=== PATIENT | male | born 1950 | race Caucasian/White ===

== ENCOUNTER 2017-01-18 07:43 | Inpatient (IN) | payer OTHER, BC ==
[2017-01-11 10:51] VITALS: BMI 36.6
--- NOTE | 2017-01-17 08:40 | HP ---
Satellite [facility] - Chief Complaint Chief Complaint: left knee pain - Past Medical History Allergies/Adverse Reactions: Allergies Allergy/AdvReac Type Severity Reaction Status Date / Time Penicillins Allergy Severe HIVES,TROUBLE Verified 01/11/17 10:13 BREATHING - Current Medications Current Medications: Home Medications Medication Instructions Recorded Aspirin [Ecotrin] 81 mg PO DAILY 01/11/17 Esomeprazole Magnesium 40 mg PO DAILY PRN 01/11/17 Inulin [Fiber Gummies] 2 gm PO DAILY 01/11/17 Oxycodone HCl/Acetaminophen 1 - 2 tab PO Q4H PRN 01/11/17 [Percocet 5-325 mg Tablet] Ramipril [Altace] 5 mg PO DAILY 01/11/17 Satellite Physical Exam - Physical Examination General Appearance: Well Nourished, Well Developed, Alert & Oriented x3 ENT: Clear Lung: Normal air movement Heart: Regular rate & rhythm Extremities: Other (left knee- + swelling, + ttp, decr rom, nvi xrays show severe tricompartmental djd) Neurological: Intact, Alert, Oriented Satellite Impression/Plan - Impression/Plan Impression: left knee djd Operative Procedure: left lisa tkr Date to be Performed: 01/18/17
[2017-01-18] MEDS ORDERED: CEFAZOLIN 2 GM in DEXTROSE 5%-WATER - 50 ML IVPB ONE (08:00)
[2017-01-18] MEDS ORDERED: TRANEXAMIC ACID 1000 MG/10 ML VIAL IVPUSH ONE (08:00)
[2017-01-18] MEDS: GABAPENTIN 300 MG CAPSULE (FP) PO ONE (08:10)
[2017-01-18] MEDS: CELECOXIB 200 MG CAPSULE PO ONE (08:10)
[2017-01-18] MEDS: oxyCODONE HCL 10 MG SUSTAINED ACTING TABLET PO ONE (08:10)
[2017-01-18] MEDS ORDERED: VANCOMYCIN 1,000 MG VIAL (RESTRICTED TO ID ONLY) ONE (08:56)
[2017-01-18] MEDS ORDERED: ceFAZolin SODIUM 1 GM VIAL ONE ×2 (09:13→10:10)
[2017-01-18] MEDS ORDERED: MIDAZOLAM HCL 2 MG/2 ML SINGLE DOSE VIAL ONE (09:19)
[2017-01-18] MEDS ORDERED: ROPIVACAINE HCL 0.5% 30ML VIAL ONE (09:19)
[2017-01-18] MEDS ORDERED: DEXAMETHASONE SOD PHOSPHATE/PF 10 MG/ML SDV ONE (09:19)
[2017-01-18] MEDS ORDERED: DEXAMETHASONE SOD PHOSPHATE 4 MG/1 ML VIAL ONE (10:10)
[2017-01-18] MEDS ORDERED: ONDANSETRON 4 MG/2 ML VIAL ONE ×2 (10:10→13:13)
[2017-01-18] MEDS ORDERED: PROPOFOL 20 ML ONE (10:20)
[2017-01-18] MEDS ORDERED: SUCCINYLCHOLINE CHLORIDE 200 MG/10 ML VIAL ONE (10:20)
[2017-01-18] MEDS ORDERED: ePHEDrine SULFATE 50 MG/1 ML AMPULE ONE (10:38)
[2017-01-18] MEDS ORDERED: PHENYLEPHRINE HCL 10 MG/1 ML SINGLE DOSE VIAL ONE (10:39)
[2017-01-18] MEDS ORDERED: TRANEXAMIC ACID 1000 MG/10 ML VIAL ONE (11:59)
[2017-01-18] MEDS ORDERED: MAG HYDROX/AL HYDROX/SIMETH 30 ML UNIT-DOSE CUP PO PRN (12:16)
[2017-01-18] MEDS ORDERED: ONDANSETRON 4 MG/2 ML VIAL IVPB PRN (12:16)
[2017-01-18] MEDS ORDERED: MAGNESIUM HYDROX 2400MG/30ML ORAL SUSPENSION 30 ML CUP PO PRN (12:16)
--- NOTE | 2017-01-18 12:18 | OP ---
Operative Note - Note: Operative Date: 01/18/17 (brian) Pre-Operative Diagnosis: left knee djd Operation: left lisa tkr Post-Operative Diagnosis: Same as Pre-op Surgeon: Pratik Lester Radio Tower Technician: Moisse Orta Anesthesiologist/ENERGY ATTORNEY: Danette Terry Anesthesia: Spinal, Local Specimens Removed: bone fragments Estimated Blood Loss (mls): 200 (tourniquet) Operative Report Dictated: Yes
[2017-01-18] MEDS ORDERED: LACTATED RINGERS SOLUTION 1,000 ML IV SCH (12:30)
[2017-01-18] MEDS ORDERED: PANTOPRAZOLE 40 MG TABLET (FP) PO PRN (12:49)
[2017-01-18] MEDS: ACETAMINOPHEN 325 MG TABLET (FP) PO SCH ×2 (13:07→18:08)
[2017-01-18] MEDS ORDERED: FAMOTIDINE 20 MG PREMIXED IVPB IVPB ONE (13:15)
[2017-01-18] MEDS ORDERED: FAMOTIDINE 20 MG/50 ML IVPB 50 ML IVPB ONE (14:00)
[2017-01-18] MEDS: CEFAZOLIN 2 GM/D5W 50 ML IVPB SCH (18:06)
[2017-01-18] MEDS: oxyCODONE HCL 5 MG TABLET PO PRN ×2 (18:06→22:26)
[2017-01-18] MEDS: SENNOSIDES/DOCUSATE COMBO (SENNA PLUS) TABLET (UD) PO SCH (21:12)
[2017-01-19] MEDS: ACETAMINOPHEN 325 MG TABLET (FP) PO SCH ×5 (00:09→23:36)
[2017-01-19] MEDS: CEFAZOLIN 2 GM/D5W 50 ML IVPB SCH (01:50)
[2017-01-19] MEDS: oxyCODONE HCL 5 MG TABLET PO PRN ×4 (05:43→20:21)
--- NOTE | 2017-01-19 08:42 | OP ---
DATE OF OPERATION: 01/18/2017 PREOPERATIVE DIAGNOSIS: Degenerative joint disease, left knee. POSTOPERATIVE DIAGNOSIS: Degenerative joint disease, left knee. PROCEDURE: Left total knee replacement with robotic assisted navigation (MAKOplasty). SURGICAL ATTENDING: Pratik Lester MD YEAST PUSHER: SANTOS Ribeiro ANESTHESIA: Spinal and regional. CLOSURE: A Triathlon Press-Fit knee system with a 7 femur, 8 tibia, 9 polyethylene, 38 patella. No. 1 Vicryl fascia, 0 and 2-0 subcutaneous, 3-0 Monocryl subcuticular with skin glue for skin, 4-0 undyed Vicryl for pin sites. ESTIMATED BLOOD LOSS: Approximately 100 mL. COMPLICATIONS: None. CONDITION: Recovery room in stable condition. DESCRIPTION OF OPERATIVE PROCEDURE: Patient was taken to the operating room on January 18, 2017. Spinal and regional anesthesia was administered by the anesthesiologist. IV Kefzol and TXA were administered prophylactically prior to the case. A well-padded pneumatic tourniquet was placed on the left proximal thigh. The left lower extremity was prepped and draped in the usual sterile fashion. The leg was exsanguinated with an Esmarch bandage and inflated to 275 mmHg (mcc through the procedure, the tourniquet for some reason lost some pressure; the leg needed to be re-exsanguinated and then re-inflated this time to 300 mmHg; half the case at 275 and half the case at 300). A 12-to-15-cm longitudinal midline incision was incised. Sharp dissection was carried down to the level of the extensor mechanism which should be sufficient mediolaterally to perform the procedure. A medial parapatellar arthrotomy was then performed with a 10 blade, leaving a cuff of tissue on the patella for later closure. Patient was inverted. The knee was flexed up. Subperiosteal dissection was done in the anterior medial proximal tibia until the knee was able to be brought forward. This was very difficult as the patient had marked osteophytes throughout and very, very stiff throughout. Fat pad was excised as were the meniscal remnants, ACL and PCL. Checkpoints were placed on both the femur and the tibia. Two threaded pins were drilled anterior-posterior through the distal femur, through the incision that was already made, and 2 threaded pins were drilled a handbreadth below the tibial tubercle after first making a stab incision and then drilling them in bicortically. Two of these pins were attached to the navigation arrays. The knee was then registered with the navigation device with center of rotation of the hip, both medial and lateral malleoli, and multiple points on both the femur and the tibia. Excellent registration was confirmed by "popping the bubbles." At this time, all osteophytes were removed. The knee was then tensioned in extension and flexion. The virtual position of the components was fine tuned to give equal tension in both flexion and extension and with varus and valgus stress. The robot was brought in the field and was registered. The robot was then used to make the appropriate cuts on both the tibia and the femur. The gaps were then confirmed to be equal with an 18-mm insert in both 90 degrees of flexion and extension. The number 7 femoral box, reusable jig was used to make the box cut. A number 7 femur achieved excellent [id number] fit. A number 8 tibial baseplate with a 9-mm insert was allowed to "find itself," was then clipped into place. It was ensured to be in the appropriate position by use of the navigation device as well. The knee went from full extension to full flexion with excellent balancing in flexion and extension. The patella was calipered for thickness and then osteotomized at the appropriate level. A 38 lollipop was used to drill the lug holes in the patella. A trial 38 component was then applied, and there was excellent tracking throughout the range of motion with no thumbs. The keel was punched. The keel of the lug holes and the lug holes in the femur were drilled. The knee was post-antibiotic irrigated copiously. The real components were then malleted into place, achieving excellent [id number] fit on both the femur and the tibia. The 9-mm insert was clipped into place. Again, good stability was throughout range of motion to varus and valgus stress. The patella component was crimped into place, had excellent tracking throughout the range of motion, and it was post-antibiotic irrigated again. Vancomycin powder was placed in the incision. The medial parapatellar arthrotomy was then closed using No. 1 Vicryl. After closure, the knee was taken through a range of motion to ensure no undue tension on the repair. The subcutaneous was post-antibiotic irrigated again, closed with 0 and 2-0 and 3-0 Monocryl subcuticular, skin with skin glue. The pins were removed distally and closed with 4-0 undyed Vicryl. Sterile pressure dressing was applied. Patient awakened from anesthesia and transferred to recovery room in stable condition. X-rays showed good position of the components. No complications. Tourniquet was deflated at the end of the case. Total tourniquet time was approximately 90 minutes. Rosa Isela [id number]
[2017-01-19] MEDS: ASPIRIN 325 MG TABLET PO SCH (08:45)
[2017-01-19 08:56] LABS: MCHC 32.8 g/dl (32.0-35.9); PLATELET COUNT 260 K/MM3 (134-434); RDW 14.1 % (11.9-15.9)
[2017-01-19 08:59] LABS: MCH 29.2 pg (25.7-33.7); MEAN CELL VOLUME 88.9 fl (80-96); MEAN PLT VOLUME 8.3 fl (7.5-11.1); WHITE BLOOD COUNT 13.9 K/mm3 (4.0-10.0)
--- NOTE | 2017-01-19 09:03 | PN ---
Progress Note (short form) - Note Progress Note: Ortho Pt seen and examined s/p left lisa tkr pod #1 Selected Entries 01/19/17 04:00 Temperature 97.8 F Pulse Rate 63 Respiratory 19 Rate Blood Pressure 130/67 Laboratory Tests 01/19/17 07:00 WBC Pending Hgb Pending Hct Pending Plt Count Pending dressing c/d/i, calf soft, nt rom 0-60, nvi a/p PT dvt ppx pain control d/c home today/tomorrow
[2017-01-19] MEDS: SENNOSIDES/DOCUSATE COMBO (SENNA PLUS) TABLET (UD) PO SCH ×2 (10:13→21:42)
[2017-01-19] MEDS: MULTIVITAMINS (DAILY MVI) TABLET (FP) PO SCH (10:13)
[2017-01-19] MEDS: RAMIPRIL 5 MG CAPSULE (FP) PO SCH (10:13)
--- NOTE | 2017-01-19 10:44 | PN ---
Progress Note, Physician Chief Complaint: s/p left TKA HALI post op day one. under spinal and peripheral nerve block History of Present Illness: post op day one - Current Medication List Current Medications: Active Medications Acetaminophen (Tylenol -) 650 mg PO Q6H [facility] Stop: 01/21/17 12:29 Last Admin: 01/19/17 05:43 Dose: 650 mg Al Hydroxide/Mg Hydroxide (Mylanta Oral Suspension -) 30 ml PO Q4H PRN PRN Reason: DYSPEPSIA Aspirin (Asa -) 325 mg PO DAILY@0800 [facility] Last Admin: 01/19/17 08:45 Dose: 325 mg Magnesium Hydroxide (Milk Of Magnesia -) 30 ml PO PRN PRN PRN Reason: CONSTIPATION Multivitamins/Minerals/Vitamin C (Tab-A-Vit -) 1 tab PO DAILY [facility] Last Admin: 01/19/17 10:13 Dose: 1 tab Ondansetron HCl (Zofran Injection) 4 mg IVPB Q6H PRN PRN Reason: NAUSEA Oxycodone HCl (Roxicodone -) 5 mg PO Q3H PRN PRN Reason: PAIN LEVEL 1-5 Last Admin: 01/19/17 05:43 Dose: 5 mg Oxycodone HCl (Roxicodone -) 10 mg PO Q3H PRN PRN Reason: PAIN LEVEL 6-10 Last Admin: 01/19/17 08:45 Dose: 10 mg Pantoprazole Sodium (Protonix -) 40 mg PO DAILY PRN PRN Reason: DYSPEPSIA Last Admin: 01/19/17 10:13 Dose: 40 mg Ramipril (Altace -) 5 mg PO DAILY [facility] Last Admin: 01/19/17 10:13 Dose: 5 mg Senna/Docusate Sodium (Pericolace -) 2 tablet PO BID [facility] Last Admin: 01/19/17 10:13 Dose: 2 tablet - Objective Vital Signs: Vital Signs Temperature 97.8 F 01/19/17 04:00 Pulse Rate 63 01/19/17 04:00 Respiratory Rate 19 01/19/17 08:20 Blood Pressure 130/67 01/19/17 04:00 O2 Sat by Pulse Oximetry (%) 96 01/19/17 08:20 Constitutional: Yes: Well Nourished Cardiovascular: Yes: WNL Respiratory: Yes: WNL Gastrointestinal: Yes: WNL Musculoskeletal: Yes: WNL Labs: CBC, BMP 01/19/17 07:00 Assessment/Plan Pain controlled, no vomiting, some nausea controlled by medication and food, no residual effect of spinal, dept of anesthesia will sign off care at this time
[2017-01-20] MEDS: oxyCODONE HCL 5 MG TABLET PO PRN ×3 (00:15→07:57)
[2017-01-20 06:43] VITALS: PULSE 73
[2017-01-20] MEDS: ACETAMINOPHEN 325 MG TABLET (FP) PO SCH (06:43)
[2017-01-20] MEDS: ASPIRIN 325 MG TABLET PO SCH (07:57)
[2017-01-20] MEDS: RAMIPRIL 5 MG CAPSULE (FP) PO SCH (09:20)
[2017-01-20] MEDS: MULTIVITAMINS (DAILY MVI) TABLET (FP) PO SCH (09:20)
[2017-01-20] MEDS: SENNOSIDES/DOCUSATE COMBO (SENNA PLUS) TABLET (UD) PO SCH (09:20)
[2017-01-20 09:38] LABS: MCHC 32.6 g/dl (32.0-35.9); MEAN CELL VOLUME 88.9 fl (80-96); MEAN PLT VOLUME 8.4 fl (7.5-11.1); PLATELET COUNT 280 K/MM3 (134-434); RDW 14.3 % (11.9-15.9); WHITE BLOOD COUNT 14.9 K/mm3 (4.0-10.0)
[2017-01-20] MEDS: oxyCODONE HCL 10 MG SUSTAINED ACTING TABLET PO ONE (10:20)
[2017-01-20] MEDS: CELECOXIB 200 MG CAPSULE PO ONE (10:20)
[2017-01-20] MEDS: GABAPENTIN 300 MG CAPSULE (FP) PO ONE (10:20)
--- NOTE | 2017-01-20 10:29 | PN ---
Progress Note (short form) - Note Progress Note: Ortho Pt seen and examined s/p left lisa tkr pod #2 Selected Entries 01/20/17 06:42 Temperature 98.8 F Pulse Rate 73 Respiratory 18 Rate Blood Pressure 140/68 Laboratory Tests 01/20/17 07:25 WBC 14.9 H Hgb 13.0 Hct 39.8 Plt Count 280 dressing c/d/i, calf soft, nt rom 0-60, nvi a/p PT dvt ppx pain control d/c home today f/u in 1 week
--- NOTE | 2017-01-20 10:30 | DS ---
Physical Examination Vital Signs: Vital Signs Temperature 98.8 F 01/20/17 06:42 Pulse Rate 73 01/20/17 06:42 Respiratory Rate 18 01/20/17 06:42 Blood Pressure 140/68 01/20/17 06:42 O2 Sat by Pulse Oximetry (%) 100 01/19/17 22:42 Labs: CBC, BMP 01/20/17 07:25 Discharge Summary Reason For Visit: OSTEOARTHRITIS Procedures: Principal: s/p left lisa tkr Hospital Course: admitted for elective left lisa tkr, uneventful post-op, stable for d/c Condition: Good - Instructions Diet, Activity, Other Instructions: Post-op Instructions-Total Knee Replacement Call the office for a follow-up appointment in 1 week - [phone] Aspirin 325mg daily for 6 weeks. Pain medication was sent into your pharmacy. Apply Graduated Compression Stockings (TEDs) to both lower extremities- remove daily for hygiene ONLY Apply Sequential Compression Device (SCDs) to both Lower extremities remove for PT and hygiene ONLY Apply cold packs to affected area for 15 minutes every 2 hours. Physical Therapist will come to your home for the first 5 days. You will be set up with outpatient PT at your first post-operative visit. Patient may ambulate as tolerated-encourage self care (at least every 2-3 hours while awake) with walker or cane Maintain Aquacel (waterproof) dressing to operative wound (will be removed by surgeon at first office visit) Shower with Aquacel dressing in place-if Aquacel integrity compromised, remove and apply dry sterile dressing and notify Orthopedist. DO NOT SHOWER unless Orthopedists approves without Aquacel dressing CONTACT THE OFFICE FOR ANY CHANGE IN YOUR CONDITION (for example-fever greater than 102 degrees,excessive bleeding from operative site, purulent drainage, severe swelling or pain) GO TO THE EMERGENCY ROOM IF THERE IS A MEDICAL EMERGENCY Knee Precautions: * Keep a rolled towel under affected heel while in bed or chair (to keep knee in extension) * Keep affected leg elevated except during mealtimes * DO NOT PLACE PILLOW UNDER AFFECTED KNEE * If you have any questions, please do not hesitate to call the office - [phone]. Referrals: Pratik Lester MD [Staff Physician] - Disposition: VNS/HOME HEALTH CARE - Home Medications Comprehensive Discharge Medication List: Ambulatory Orders Esomeprazole Magnesium 40 mg PO DAILY PRN 01/11/17 Inulin [Fiber Gummies] 2 gm PO DAILY 01/11/17 Ramipril [Altace] 5 mg PO DAILY 01/11/17 Aspirin [ASA -] 325 mg PO DAILY@0800 tablet 01/18/17 Cholecalciferol (Vitamin D3) [Vitamin D3 -] 2,000 units PO DAILY 01/18/17 Oxycodone HCl/Acetaminophen [Percocet 5-325 mg Tablet] 1 - 2 tab PO Q6H PRN #50 tab MDD 8 01/18/17
[2017-01-20 11:50] VITALS: BP 135/62; TEMP 98.5
--- NOTE | 2017-01-21 13:37 | PATH ---
Surgical Pathology Report Patient Name: JENNY BLEDSOE Med. Rec. #: [id number] /Age/Gender: 1950 (Age: 66) / M Account: [id number] Location: [facility] Taken: 01/18/2017 Received: 01/18/2017 Reported: 01/21/2017 Physicians: Pratik Lester M.D. Specimen(s) Received BONE LEFT KNEE Clinical History Left knee osteoarthritis Final Diagnosis BONE, LEFT KNEE, TOTAL KNEE REPLACEMENT MAKOPLASTY: DEGENERATIVE JOINT DISEASE. Electronically Signed Kenny Louis M.D. Gross Description Received in formalin labeled "bone left knee" is a 14.0 x 11.5 x 2.3 cm aggregate of multiple wiseman-yellow, irregular portions of bone and wiseman-yellow soft tissue with preserved tibial plateau and femoral condyles. There is a 1.7 cm in greatest dimension area of eburnation identified. The remaining articular surfaces are wiseman-yellow and diffusely granular. The underlying trabecular bone is yellow and heterogeneous. Upper Leather Cutter sections are submitted in one cassette, following decalcification. /01/19/2017 [facility]01/19/2017
== END 2017-01-20 11:33 | disposition home health service (06) | DRG 470 ==
LOC: FM/S 07:43
PROVIDERS: ADMIT Orthopaedic Surgery; ATTEND Orthopaedic Surgery
PROC: 8E0Y0CZ Robotic Assisted Procedure of Lower Extremity, Open Approach (ICD-10-PCS; 2017-01-18)
PROC: 0SRD0JZ Replacement of Left Knee Joint with Synthetic Substitute, Open Approach (ICD-10-PCS; principal; 2017-01-18 10:25)
DX: M17.12 Unilateral primary osteoarthritis, left knee (principal); E78.5 Hyperlipidemia, unspecified; I10 Essential (primary) hypertension; K21.9 Gastro-esophageal reflux disease without esophagitis; E66.8 Other obesity; Z68.36 Body mass index [BMI] 36.0-36.9, adult; Z86.73 Personal history of transient ischemic attack (TIA), and cerebral infarction without residual deficits
CPT/HCPCS: 36415; 73560-TC-LT; 85027; 88305-TC; 88311-TC; 94010; 94760; 97116-GP; 97162-GP